=== PATIENT | female | born 1975 | race African-American/Black ===

== ENCOUNTER 2016-09-22 12:30 | Emergency (ER) | payer OTHER ==
[~2016-09-22] VITALS: Ht 160 cm; Wt 72.6 kg
[~2016-09-22 12:30] MED LIST: AMOXICILLIN 50500 MG PO; BACTRIM DS TAB1 EACH PO; CIPROFLOXACIN500 M1 PO; HYDROCODONE-AP1 EAC6 PO; KEFLEX500 MG PO; LORTABELXR PO; MICONAZOLE 31 EACH VG; NAPROSYN500 MG PO; NOHOMEMEDICATIONS; NORCO 5-325 TA1 EACH PO; PHENAZOPYRIDIN200 M2 PO; PHENERGAN 25 MG25 M1 PO; PREDNISONE 10 M10 MG PO; PYRIDIUM200 MG PO
[2016-09-22 12:47] LABS: URINE BILIRUBIN NEGATIVE (Negative); URINE BLOOD TRACE (Negative); URINE COLOR YELLOW; URINE GLUCOSE-RANDOM* NEGATIVE (Negative); URINE KETONES NEGATIVE (Negative); URINE NITRITE NEGATIVE (Negative); URINE PROTEIN (DIPSTICK) NEGATIVE (Negative); URINE UROBILINOGEN 0.2 E.U./dl (0.2-1.0)
[2016-09-22] MEDS ORDERED: FLAGYL500 MG PO (14:27)
[2016-09-22 14:37] VITALS: BP 129/82
[2016-09-23 20:10] LABS: CHLAMYDIA TRACHOMATIS-PCR Negative (Negative); NEISSERIA GONORRHEA-PCR Negative (Negative)
== END 2016-09-22 14:37 | disposition home or self-care (01) ==
LOC: ER 12:30
PROVIDERS: Emergency Medicine; Physician Assistant
DX: N76.0 Acute vaginitis (principal); R30.0 Dysuria; F17.210 Nicotine dependence, cigarettes, uncomplicated; F15.10 Other stimulant abuse, uncomplicated

== ENCOUNTER 2019-01-11 07:09 | Emergency (ER) | payer OTHER ==
[~2019-01-11] VITALS: Ht 167.6 cm; Wt 63.5 kg
[~2019-01-11 07:09] MED LIST changes: +FLAGYL500 MG PO
[2019-01-11 07:10] VITALS: BP 137/83
[2019-01-11 07:27] LABS: URINE BILIRUBIN NEGATIVE (Negative); URINE BLOOD 1+ (Negative); URINE CLARITY CLEAR; URINE COLOR YELLOW; URINE GLUCOSE-RANDOM* NEGATIVE (Negative); URINE KETONES NEGATIVE (Negative); URINE LEUKOCYTES NEGATIVE (Negative); URINE NITRITE NEGATIVE (Negative); URINE PROTEIN (DIPSTICK) NEGATIVE (Negative); URINE UROBILINOGEN 0.2 E.U./dl (0.2-1.0)
[2019-01-11 07:51] LABS: BACTERIA >30 Many /HPF (None Seen); CASTS None Seen /LPF (None Seen); SQUAMOUS >10 Many /LPF (0-3); URINE RBC 0-2 Rare /HPF (0-2); URINE WBC 0-5 Rare /HPF (0-5)
[2019-01-11 07:52] LABS: CRYSTALS None Seen /LPF (None Seen)
[2019-01-11] MEDS ORDERED: CEPHALEXIN500 MG PO (07:58)
[2019-01-11] MEDS ORDERED: ZOFRAN ODT4 MG PO (07:58)
== END 2019-01-11 08:10 | disposition home or self-care (01) ==
LOC: ER 07:09
PROVIDERS: Emergency Medicine
DX: N39.0 Urinary tract infection, site not specified (principal); F17.210 Nicotine dependence, cigarettes, uncomplicated

== ENCOUNTER 2019-03-03 17:50 | Emergency (ER) | payer OTHER ==
[~2019-03-03] VITALS: Ht 160 cm; Wt 72.6 kg
[~2019-03-03 17:50] MED LIST changes: +CEPHALEXIN500 MG PO; +ZOFRAN ODT4 MG PO
[2019-03-03 17:51] VITALS: BP 122/78
[2019-03-03] MEDS ORDERED: NEO-POLYCIN EY3.5 GM OPHTHALMIC (18:51)
[2019-03-03] MEDS ORDERED: KEFLEX500 M1 PO (18:51)
[2019-03-03] MEDS ORDERED: NORCO 5-325 TA1 EAC1 PO (18:51)
[2019-03-03] MEDS ORDERED: TRIAMCINOLONE A80 G2 TOP (18:51)
== END 2019-03-03 18:59 | disposition home or self-care (01) ==
LOC: ER 17:50
DX: H00.016 Hordeolum externum left eye, unspecified eyelid (principal); H60.12 Cellulitis of left external ear; L25.9 Unspecified contact dermatitis, unspecified cause; F17.210 Nicotine dependence, cigarettes, uncomplicated

== ENCOUNTER 2019-12-25 11:58 | Emergency (ER) | payer OTHER ==
[~2019-12-25] VITALS: Ht 160 cm; Wt 65.8 kg
[~2019-12-25 11:58] MED LIST changes: +KEFLEX500 M1 PO; +NEO-POLYCIN EY3.5 GM OPHTHALMIC; +NORCO 5-325 TA1 EAC1 PO; +TRIAMCINOLONE A80 G2 TOP
[2019-12-25 12:03] VITALS: BP 127/82
[2019-12-25] MEDS ORDERED: PREDNISONE 20 M20 M1 PO (12:50)
[2019-12-25] MEDS ORDERED: KEFLEX500 M1 PO (12:50)
== END 2019-12-25 13:08 | disposition home or self-care (01) ==
LOC: ER 11:58
DX: S40.261A Insect bite (nonvenomous) of right shoulder, initial encounter (principal); S60.561A Insect bite (nonvenomous) of right hand, initial encounter; S00.86XA Insect bite (nonvenomous) of other part of head, initial encounter; S80.862A Insect bite (nonvenomous), left lower leg, initial encounter; S30.860A Insect bite (nonvenomous) of lower back and pelvis, initial encounter; T78.40XA Allergy, unspecified, initial encounter; F17.210 Nicotine dependence, cigarettes, uncomplicated; Z79.899 Other long term (current) drug therapy; W57.XXXA Bitten or stung by nonvenomous insect and other nonvenomous arthropods, initial encounter; Y93.89 Activity, other specified; Y92.89 Other specified places as the place of occurrence of the external cause; Y99.8 Other external cause status

== ENCOUNTER 2020-03-27 08:25 | Emergency (ER) | payer OTHER ==
[~2020-03-27] VITALS: Ht 162.6 cm; Wt 68.0 kg
[~2020-03-27 08:25] MED LIST changes: +PREDNISONE 20 M20 M1 PO
[2020-03-27 08:59] LABS: URINE BILIRUBIN NEGATIVE (Negative); URINE BLOOD 3+ (Negative); URINE CLARITY SL CLOUDY; URINE COLOR YELLOW; URINE GLUCOSE-RANDOM* NEGATIVE (Negative); URINE KETONES TRACE (Negative); URINE LEUKOCYTES-REFLEX NEGATIVE (Negative); URINE NITRITE-REFLEX NEGATIVE (Negative); URINE PROTEIN (DIPSTICK) NEGATIVE (Negative); URINE SPECIFIC GRAVITY 1.015 (1.005-1.035)
[2020-03-27 09:09] LABS: BACTERIA-REFLEX >30 Many /HPF (None Seen); CASTS None Seen /LPF (None Seen); CRYSTALS None Seen /LPF (None Seen); SQUAMOUS >10 Many /LPF (0-3); URINE RBC 3-10 Few /HPF (0-2); URINE WBC-REFLEX 0-5 Rare /HPF (0-5)
[2020-03-27] MEDS ORDERED: KEFLEX500 M1 PO (09:58)
[2020-03-27 10:10] VITALS: BP 142/81
== END 2020-03-27 10:15 | disposition home or self-care (01) ==
LOC: ER 08:25
PROVIDERS: Emergency Medicine
DX: S00.12XA Contusion of left eyelid and periocular area, initial encounter (principal); H20.9 Unspecified iridocyclitis; N39.0 Urinary tract infection, site not specified; F17.210 Nicotine dependence, cigarettes, uncomplicated; X58.XXXA Exposure to other specified factors, initial encounter; Y93.89 Activity, other specified; Y92.89 Other specified places as the place of occurrence of the external cause; Y99.8 Other external cause status